=== PATIENT | female | born 1985 | race Caucasian/White ===

== ENCOUNTER 2016-11-11 10:46 | Emergency (ER) | payer OTHER ==
[2016-11-11 10:50] VITALS: BP 130/62; PULSE 78; TEMP 98.4; BMI 19.3
[2016-11-11] MEDS ORDERED: PENICILLIN G BENZATHINE 1,200,000 UNIT/2 ML PFS IM ONE (11:45)
--- NOTE | 2016-11-11 11:48 | PDOC ---
History of Present Illness - General Chief Complaint: Cold Symptoms Stated Complaint: SORE THROAT/EAR ACHE Time Seen by Provider: 11/11/16 11:11 History Source: Patient Exam Limitations: No Limitations - History of Present Illness Initial Comments: 11/11/16 11:45 c/o pain anmd swelling to throat x 2 days./ + fevers/ pain / px swallowing . Daughter ill with same last week on abx Timing/Duration: reports: just prior to arrival, getting worse Severity: reports: mild, moderate Past History - Travel Traveled outside of the country in the last 30 days: No Close contact w/someone who was outside of country & ill: No - Past Medical History Allergies/Adverse Reactions: Allergies Allergy/AdvReac Type Severity Reaction Status Date / Time No Known Allergies Allergy Verified 11/11/16 10:48 Home Medications: Ambulatory Orders NK [No Known Home Medication] 11/11/16 Other medical history: fibroids - Psycho/Social/Smoking Cessation Hx Anxiety: No Suicidal Ideation: No Smoking History: Never smoked Have you smoked in the past 12 months: No Information on smoking cessation initiated: No Hx Alcohol Use: No Drug/Substance Use Hx: No Substance Use Type: None Respiratory Specific PMHX - Complaint Specific PMHX Bronchitis: No Pneumonia: No Review of Systems - Review of Systems Able to Perform ROS?: Yes Is the patient limited Kenyan proficient: Yes Constitutional: Yes: Symptoms Reported, See HPI, Fever, Malaise HEENTM: Yes: Symptoms Reported, See HPI, Nose Congestion, Throat Pain, Throat Swelling, Difficulty Swallowing, Mouth Swelling Respiratory: Yes: Symptoms reported, See HPI, Cough. No: Wheezing Integumentary: Yes: Symptoms Reported All Other Systems: Reviewed and Negative *Physical Exam - Vital Signs Last Vital Signs Temp Pulse Resp BP Pulse Ox 98.4 F 78 18 130/62 100 11/11/16 10:48 11/11/16 10:48 11/11/16 10:48 11/11/16 10:48 11/11/16 10:48 - Physical Exam General Appearance: Yes: Nourished, Appropriately Dressed, Apparent Distress, Mild Distress HEENT: positive: AKSHAT, TMs Normal, Pharyngeal Erythema, Tonsillar Exudate, Tonsillar Erythema, Nasal Congestion, Rhinorrhea. 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 Will treat with one dose of 1.2 million units IM Bicillin LA. Observed for 30 minutes with no reaction *DC/Admit/Observation/Transfer Diagnosis at time of Disposition: Pharyngitis Qualifiers: Pharyngitis/tonsillitis etiology: unspecified etiology Qualified Code(s): J02.9 - Acute pharyngitis, unspecified - Discharge Dispostion Disposition: HOME Condition at time of disposition: Stable Admit: No - Referrals Referrals: STAFF,NOT ON [Primary Care Provider] - - Patient Instructions Printed Discharge Instructions: DI for Pharyngitis/Tonsillopharyngitis -- Adult Additional Instructions: Rest, drink lots of fluids: Teas, water, soups Eat cold things: Ice cream, ice pops, ice chips Saltwater gargles Steamy showers/seem to face break up mucus Avoid contact with others until fevers and pain resolved Lots of handwashing and good hygiene, this is contagious You have been treated with Bicillin LA 1.2 million units injection which is a one-time treatment for strep pharyngitis. You will not need to take any further antibiotics. Tylenol or Motrin for fever and pain Followup with private physician in one to 2 days as needed if not improving Return to emergency department for worsened symptoms, fevers, dehydration - Post Discharge Activity Work/School Note: Back to Work
[2016-11-11] MEDS ORDERED: PENICILLIN G BENZATHINE 2,400,000 UNIT/4 ML PFS ONE (11:49)
== END 2016-11-11 12:32 | disposition home or self-care (01) ==
LOC: JERFT 10:46
DX: J02.9 Acute pharyngitis, unspecified (principal)
CPT/HCPCS: 96372; 99281-25

== ENCOUNTER 2020-01-17 07:25 | Inpatient (IN) | payer OTHER ==
--- NOTE | 2020-01-17 09:27 | PD.OB.PROG ---
Past Medical History - Primary Care Physician Documenting Provider Type: Laborist - Admission Chief Complaint: abdominal pain, leakage of fluid History of Present Illness: 34yo at 37.5 weeks presents with c/o leakage of fluid and contraction pain. Pt noticed some leakage followed by a gush some time later. Has been having contraction pain. Mild vaginal bleeding. PNC at [facility] significant for previous myomectomy with 9cm myoma. 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 Cardio/Vascular: Denies/None Pulmonary: Denies/None Gastrointestinal: Denies/None Hepatobiliary: Denies/None Renal/: Denies/None ...: 2 ...Para: 1 ...Term: 0 ...: 1 ...Spon : 0 ...Induced : 0 ...Living Children: 1 Heme/Onc: Denies/None Infectious Disease: Denies/None Psych: Denies/None Musculoskeletal: Denies/None Rheumatology: Denies/None ENT: Denies/None Endocrine: Denies/None Dermatology: Denies/None - Past Surgical History Past Surgical History: Yes: None (abdominal myomectomy) - Smoking History Smoking history: Never smoked Have you smoked in the past 12 months: No - Alcohol/Substance Use Hx Alcohol Use: No History of Substance Use: reports: None - Social History History of Recent Travel: No Review of Systems - Review of Systems Constitutional: reports: No Symptoms Eyes: reports: No Symptoms HENT: reports: No Symptoms Neck: reports: No Symptoms Cardiovascular: reports: No Symptoms Respiratory: reports: No Symptoms Gastrointestinal: reports: No Symptoms Genitourinary: reports: Pain Breasts: reports: No Symptoms Reported Musculoskeletal: reports: No Symptoms Integumentary: reports: No Symptoms Neurological: reports: No Symptoms Endocrine: reports: No Symptoms Hematology/Lymphatic: reports: No Symptoms Psychiatric: reports: No Symptoms Physical Exam - Obstetrical Constitutional: Yes: Well Nourished Eyes: Yes: WNL Neck: Yes: WNL Cardiovascular: Yes: Regular Rate and Rhythm - Abdominal Exam/OB Fundal Height: 39 Number of Fetuses: Single Presentation: Vertex Contractions: Yes Intensity: Mod/Strong Monitor Mode: External Heart Rate (range): 145 Category: II Accelerations: Uniform Decelerations: Variable - Vaginal Exam/OB Vaginal Bleeding: Light Speculum Exam: Yes Dilatation (cm): closed Amniotic Membrane Status: Ruptured Nitrazine Test: Positive Amniotic Fluid: Yes: Blood Stained Station: -3 (cervix appears closed; pt did not tolerate exam) - Physical Exam Musculoskeletal: Yes: WNL Integumentary: Yes: WNL Assessment/Plan 34yo at 37+ weeks with SROM and contractions; previous myomectomy primary ob Dr. Lorenzo called and informed of findings pt to be admitted; plan for primary c/s for previous myomectomy Dr. Rueda
[2020-01-17 09:45] VITALS: BMI 63.3
[2020-01-17 10:13] LABS: BASO % 0.2 % (0-2.0); EOS % 1.3 % (0-4.5); HEMATOCRIT 34.2 % (32.4-45.2); HEMOGLOBIN 11.1 GM/dL (10.7-15.3); LYMPH % 16.9 % (8-40); MCH 25.2 pg (25.7-33.7); MCHC 32.4 g/dl (32.0-36.0); MEAN PLT VOLUME 8.8 fl (7.5-11.1); NEUT % 74.6 % (42.8-82.8); PLATELET COUNT 260 K/MM3 (134-434); RBC 4.38 M/mm3 (3.60-5.2); RDW 21.2 % (11.6-15.6); WHITE BLOOD COUNT 9.4 K/mm3 (4.0-10.0)
[2020-01-17 10:21] LABS: INR 0.92 (0.83-1.09); PROTHROMBIN TIME (PATIENT) 10.9 SEC (9.7-13.0)
[2020-01-17 10:24] LABS: ACTIVATED PTT 27.4 SECONDS (25.2-36.5)
[2020-01-17 10:28] LABS: BLOOD UREA NITROGEN 10.8 mg/dL (7-18); CALCIUM 9.3 mg/dL (8.5-10.1); CREATININE 0.5 mg/dL (0.55-1.3); POTASSIUM 4.3 mmol/L (3.5-5.1)
[2020-01-17] MEDS ORDERED: ONDANSETRON 4 MG/2 ML VIAL IVPUSH PRN (10:47)
[2020-01-17] MEDS ORDERED: morphine SULFATE/PF 0.5 MG/ML (2cc Syringe - QUVA) EP ONE (10:47)
[2020-01-17] MEDS ORDERED: ceFAZolin SODIUM 1 GM VIAL ONE (11:02)
[2020-01-17 11:09] LABS: ANISOCYTOSIS 1+; MACROCYTOSIS 0; PLATELET ESTIMATE NORMAL
--- NOTE | 2020-01-17 11:12 | HP ---
Past Medical History - Primary Care Physician PCP:: Tunde Lorenzo - Admission Chief Complaint: 34yo P1 admitted with at EGA 37w6d due to spontaneous labor, SROM, and spotting. History of Present Illness: Pt presenteed with spontaneous ctx's SROM and spotting. 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: Alzheimer's, CVA, Dementia, Migraine, Multiple Sclerosis, Peripheral Neuropathy, Parkinson's, Seizure, Syncope, TIA, Vertigo, Other Cardiovascular: No: AFIB, Aneurysm, Aortic Insufficiency, Aortic Stenosis, CAD, CHF, Deep Vein Thrombosis, HTN, Hyperlipdemia, [place], Mitral Insufficiency, Mitral Stenosis, Murmur, Pulmonary Hypertension, Other Pulmonary: No: Asthma, Bronchitis, Cancer, COPD, O2 Dependent, Pneumonia, Previously Intubated, Pulmonary Embolus, Pulmonary Fibrosis, Sleep Apnea, Other Gastrointestinal: No: Ascites, Cancer, Constipation, Crohn's Disease, Diverticulitis, Diverticulosis, Esophageal Varices, Gastritis, GERD, GI Bleed, Hemorrhoids, Hiatal Hernia, Inflamatory Bowel Disease, Irritable Bowel Disease, Pancreatitis, Peptic Ulcer Disease, Ulcerative Colitis, Other Hepatobiliary: No: Cirrhosis, Cholelithiasis, Cholecystitis, Choledocholithiasis, Hepatitis A, Hepatitis B, Hepatitis C, Other Renal/: No: Renal Failure, Renal Inusuff, BPH, Cancer, Hematuria, Hemodialysis, Neurogenic Bladder, Renal Calculi, UTI, Other Reproductive: No: Ectopic , Endometriosis, Fibroids, PID, Polycystic Ovary Syndrome, Postmenopausal, Other ...: 2 ...Para: 1 ...Term: 0 ...: 1 ...Spon : 0 ...Induced : 0 ...Living Children: 1 ...LMP: 05/01/19 ... Weeks Gestation by Dates: 37.2 ...EDC by Dates: 02/05/20 ...EDC by Sono: 01/31/20 Heme/Onc: Yes: Anemia Infectious Disease: No: AIDS, C-Diff, Herpes Zoster, HIV, MRSA, STD's, Tuberculosis, VREF, Other Psych: No: Addictions, Anxiety, Bipolar, Depression, Panic, Psychosis, Schizophrenia, Other Musculoskeletal: No: Bursitis, Chronic low back pain, Hemiparesis, Hemiplegia, Osteoarthritis, Paraplegia, Other Rheumatology: No: Fibromyalgia, Gout, Lupus, Rheumatoid Arthritis, Sarcoidosis, Vasculitis, Other ENT: No: Allergic Rhinitis, Sinusitis, Other Endocrine: No: [place]'s Disease, [place]'s Disease, Diabetes Insipidus, Diabetes Mellitus, Hyperparathyroidism, Hyperthyroidism, Hypothyroidism, Osteopenia, SIADH, Other Dermatology: No: Basal Cell, Cellulitis, Eczema, Melanoma, Psoriasis, Squamous Cell, Other - Past Surgical History Hx Myomectomy: Yes (Laparoscopic) Hx Transabdominal Cerclage: No - Smoking History Smoking history: Never smoked Have you smoked in the past 12 months: No - Alcohol/Substance Use Hx Alcohol Use: No History of Substance Use: reports: None - Social History Usual Living Arrangement: Yes: With Spouse, With Child Do you think of yourself as: Straight/Heterosexual ADL: Independent 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 History of Recent Travel: No Home Medications - Allergies Allergies/Adverse Reactions: Allergies Allergy/AdvReac Type Severity Reaction Status Date / Time oxycodone [From Percocet] Allergy Verified 01/17/20 09:46 - Home Medications Home Medications: Ambulatory Orders Pnv No.95/Ferrous Fum/Folic AC [ Formula] 1 each PO DAILY 01/07/20 Iron 1 infus.bot IV WEEKLY 01/08/20 Tablet 1 tablet PO DAILY 01/17/20 Family Medical History Family Hx Cardiac Disorders: Father Review of Systems - Review of Systems Constitutional: reports: Other (Pain with contractions and/or fibroids.) Eyes: reports: No Symptoms HENT: reports: No Symptoms Neck: reports: No Symptoms Cardiovascular: reports: No Symptoms Respiratory: reports: No Symptoms Gastrointestinal: reports: No Symptoms Genitourinary: reports: No Symptoms Breasts: reports: No Symptoms Reported Musculoskeletal: reports: No Symptoms Integumentary: reports: No Symptoms Neurological: reports: No Symptoms Endocrine: reports: No Symptoms Hematology/Lymphatic: reports: No Symptoms Psychiatric: reports: No Symptoms Pain Intensity: 7 Physical Exam - Maternity Vital Signs: Vital Signs Temperature 98.2 F 01/17/20 09:36 Pulse Rate 82 01/17/20 10:15 Respiratory Rate 18 01/17/20 10:15 Blood Pressure 121/72 01/17/20 10:15 O2 Sat by Pulse Oximetry (%) Constitutional: Yes: Well Nourished, No Distress, Calm Eyes: Yes: WNL, Conjunctiva Clear, EOM Intact HENT: Yes: WNL, Atraumatic, Normocephalic Neck: Yes: WNL, Supple, Trachea Midline Cardiovascular: Yes: WNL, Regular Rate and Rhythm Lungs: Clear to auscultation, Normal air movement Breast(s): Yes: WNL - Abdominal Exam/OB Fundal Height: 39 Number of Fetuses: Single Presentation: Vertex Contractions: Yes Intensity: Moderate Monitor Mode: External Heart Rate (range): 140 Heart Rate Location: Midline Accelerations: Non-Uniform Decelerations: None - Vaginal Exam/OB Vaginal Bleeding: Yes, Light, Old Blood Speculum Exam: Yes Dilatation (cm): 1 Effacement (%): 50 Amniotic Membrane Status: Leaking Nitrazine Test: Positive Amniotic Fluid: Yes: Clear Presentation: Vertex/Position Station: -4 - Physical Exam Musculoskeletal: Yes: WNL Extremities: Yes: WNL Edema: No Integumentary: Yes: WNL Deep Tendon Reflex Grade: Normal +2 ...Motor Strength: WNL Psychiatric: Yes: WNL, Alert, Oriented - Labs Lab Results: CBC, BMP 01/17/20 09:36 01/17/20 09:36 Hemorrhage Risk Assessment - Risk Factors Medium Risk Factors: Yes: Prior , uterine surgery,or multiple laparotomies, Large myomas High Risk Factors: Yes: None Risk Score: 2 Risk Level: High Risk Imaging - Results Ultrasound: Report Reviewed Assessment/Plan 34yo P1 admitted with at EGA 37w6d due to spontaneous labor, SROM, and spotting. The decision was made to proceed with delivery by C/S. We discussed the risks and benefits of C/S at length, including but not limited to scarring, pain, bleeding, infection, injury to underlying organs and structures, need for additional surgery to repair/treat any problems or complications, complications/injuries, etc. The pt verbalized her understanding and requested to proceed with surgery. The pt is aware that all surgeries have risks and no guarantees can be provided
[2020-01-17] MEDS ORDERED: ELECTROLYTE-148 SOLN 1,000 ML IV SCH (11:15)
[2020-01-17] MEDS ORDERED: PHENYLEPHRINE HCL 10 MG/1 ML SINGLE DOSE VIAL ONE (11:25)
[2020-01-17] MEDS ORDERED: OXYTOCIN 10 UNITS/ML VIAL ONE ×2 (11:38→11:46)
[2020-01-17] MEDS ORDERED: MIDAZOLAM HCL 2 MG/2 ML SINGLE DOSE VIAL ONE (11:40)
[2020-01-17] MEDS: OXYTOCIN 20 UNITS in 0.9% NS 20 UNIT/1,000 ML INFUS.BAG IV SCH (11:40)
[2020-01-17] MEDS ORDERED: LIDOCAINE HCL/PF 2% SDV 5ML VIAL ONE (11:41)
[2020-01-17 12:24] LABS: VENOUS BASE EXCESS -3.2 mmol/L (-2-2); VENOUS O2 SATURATION 58.5 % (70-80); VENOUS PCO2 44.9 mmHg (38-52); VENOUS PH 7.326 (7.310-7.410)
[2020-01-17 12:28] LABS: ARTERIAL BLOOD GAS BASE EXCESS -3.8 mmol/L (-2-2)
[2020-01-17 12:32] LABS: ARTERIAL BLOOD GAS PO2 < 15.0 mmHg (80-100)
[2020-01-17] MEDS ORDERED: BENZOCAINE 28 GM HEMORRHOIDAL OINTMENT TP PRN (13:02)
[2020-01-17] MEDS ORDERED: METHYLERGONOVINE MALEATE 0.2 MG/1 ML AMP IM PRN (13:02)
[2020-01-17] MEDS ORDERED: WITCH HAZEL 50% (TUCKS) 40 PAD/JAR PAD TP PRN (13:02)
[2020-01-17] MEDS ORDERED: IBUPROFEN 800 MG/8 ML IJ IVPB PRN (13:02)
[2020-01-17] MEDS ORDERED: BENZOCAINE 20% 57 GM BOTTLE TP PRN (13:02)
--- NOTE | 2020-01-17 13:41 | OP ---
Operative Note - Note: Operative Date: 01/17/20 Pre-Operative Diagnosis: at EGA 37w6d. Prior uterine surgery/scar. large uterine fibroids. AMA. Spontaneous labor Operation: Primary LT C/S Findings: Live baby boy in vts presentation, no meconium in amniotic fluid, Nuchal cord x 2. 9-9. Wt 6 lb 10 oz. Post-Operative Diagnosis: Same as Pre-op Surgeon: Tunde Lorenzo Biomedical Manager: Marilee Rueda Anesthesiologist/DETECTIVE HOMICIDE SQUAD: Garth Leija Anesthesia: Spinal Specimens Removed: Placenta Estimated Blood Loss (mls): 700 Drains & Tubes with Location: [place] catheter Drains, Volume Out (mls): 700 Blood Volume Replaced (mls): 0 Fluid Volume Replaced (mls): 1,100 Operative Report Dictated: Yes
[2020-01-17] MEDS ORDERED: OXYTOCIN 20 UNITS in 0.9% NS 20 UNIT/1,000 ML INFUS.BAG IV ONE (13:58)
[2020-01-17 14:28] LABS: BASO % 0.2 % (0-2.0); EOS % 0.7 % (0-4.5); HEMATOCRIT 35.8 % (32.4-45.2); HEMOGLOBIN 11.4 GM/dL (10.7-15.3); LYMPH % 13.2 % (8-40); MCH 24.5 pg (25.7-33.7); MCHC 31.8 g/dl (32.0-36.0); MEAN CELL VOLUME 77.2 fl (80-96); MEAN PLT VOLUME 8.5 fl (7.5-11.1); MONO % 3.9 % (3.8-10.2); PLATELET COUNT 264 K/MM3 (134-434); RBC 4.63 M/mm3 (3.60-5.2); RDW 21.5 % (11.6-15.6); WHITE BLOOD COUNT 9.5 K/mm3 (4.0-10.0)
--- NOTE | 2020-01-17 20:45 | PN ---
Progress Note (short form) - Note Progress Note: Assited Dr. Lorenzo in primary c/s for previous myomectomy. Dr. Rueda
--- NOTE | 2020-01-18 07:30 | CON.CARD ---
Consult Consult Specialty:: Cardiology Reason for Consultation:: EKG changes - History of Present Illness History of Present Illness: 34yo P1 admitted with at EGA 37w6d due to spontaneous labor, SROM, and spotting. History of Present Illness: Pt presenteed with spontaneous ctx's SROM and spotting. 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: Alzheimer's, CVA, Dementia, Migraine, Multiple Sclerosis, Peripheral Neuropathy, Parkinson's, Seizure, Syncope, TIA, Vertigo, Other Cardio/Vascular: No: AFIB, Aneurysm, Aortic Insufficiency, Aortic Stenosis, CAD, CHF, Deep Vein Thrombosis, HTN, Hyperlipdemia, [place], Mitral Insufficiency, Mitral Stenosis, Murmur, Pulmonary Hypertension, Other Pulmonary: No: Asthma, Bronchitis, Cancer, COPD, O2 Dependent, Pneumonia, Previously Intubated, Pulmonary Embolus, Pulmonary Fibrosis, Sleep Apnea, Other Gastrointestinal: No: Ascites, Cancer, Constipation, Crohn's Disease, Diverticulitis, Diverticulosis, Esophageal Varices, Gastritis, GERD, GI Bleed, Hemorrhoids, Hiatal Hernia, Inflamatory Bowel Disease, Irritable Bowel Disease, Pancreatitis, Peptic Ulcer Disease, Ulcerative Colitis, Other Hepatobiliary: No: Cirrhosis, Cholelithiasis, Cholecystitis, Choledocholithiasis, Hepatitis A, Hepatitis B, Hepatitis C, Other Renal/: No: Renal Failure, Renal Inusuff, BPH, Cancer, Hematuria, Hemodialysis, Neurogenic Bladder, Renal Calculi, UTI, Other Infectious Disease: No: AIDS, C-Diff, Herpes Zoster, HIV, MRSA, STD's, Tuberculosis, VREF, Other Psych: No: Addictions, Anxiety, Bipolar, Depression, Panic, Psychosis, Schizophrenia, Other Musculoskeletal: No: Bursitis, Chronic low back pain, Hemiparesis, Hemiplegia, Osteoarthritis, Paraplegia, Other Rheumatology: No: Fibromyalgia, Gout, Lupus, Rheumatoid Arthritis, Sarcoidosis, Vasculitis, Other ENT: No: Allergic Rhinitis, Sinusitis, Other Endocrine: No: Maurizio's Disease, [place]'s Disease, Diabetes Insipidus, Diabetes Mellitus, Hyperparathyroidism, Hyperthyroidism, Hypothyroidism, Osteopenia, SIADH, Other Dermatology: No: Basal Cell, Cellulitis, Eczema, Melanoma, Psoriasis, Squamous Cell, Other - Past Surgical History Past Surgical History: Yes: None (abdominal myomectomy) - Alcohol/Substance Use Hx Alcohol Use: No History of Substance Use: reports: None - Smoking History Smoking history: Never smoked Have you smoked in the past 12 months: No - Social History ADL: Independent 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 History of Recent Travel: No Home Medications - Allergies Allergies/Adverse Reactions: Allergies Allergy/AdvReac Type Severity Reaction Status Date / Time oxycodone [From Percocet] Allergy Verified 01/17/20 09:46 - Home Medications Home Medications: Ambulatory Orders Pnv No.95/Ferrous Fum/Folic AC [ Formula] 1 each PO DAILY 01/07/20 Iron 1 infus.bot IV WEEKLY 01/08/20 Tablet 1 tablet PO DAILY 01/17/20 Review of Systems - Review of Systems Constitutional: reports: No Symptoms Eyes: reports: No Symptoms HENT: reports: No Symptoms Neck: reports: No Symptoms Cardiovascular: reports: No Symptoms Gastrointestinal: reports: No Symptoms Genitourinary: reports: No Symptoms Breasts: reports: No Symptoms Reported Musculoskeletal: reports: No Symptoms Integumentary: reports: No Symptoms Neurological: reports: No Symptoms Endocrine: reports: No Symptoms Hematology/Lymphatic: reports: No Symptoms Psychiatric: reports: No Symptoms Vital Signs: Vital Signs Temperature 98.5 F 01/18/20 06:00 Pulse Rate 92 H 01/18/20 06:00 Respiratory Rate 20 01/18/20 06:00 Blood Pressure 126/72 01/18/20 06:00 O2 Sat by Pulse Oximetry (%) Constitutional: Yes: Well Nourished, No Distress, Calm Eyes: Yes: WNL, Conjunctiva Clear, EOM Intact HENT: Yes: WNL, Atraumatic, Normocephalic Neck: Yes: WNL, Supple, Trachea Midline Respiratory: Yes: WNL, Regular, CTA Bilaterally Gastrointestinal: Yes: WNL, Normal Bowel Sounds Renal/: Yes: WNL Cardiovascular: Yes: WNL, Regular Rate and Rhythm Musculoskeletal: Yes: WNL Extremities: Yes: WNL Integumentary: Yes: WNL Neurological: Yes: WNL, Alert, Oriented ...Motor Strength: WNL Psychiatric: Yes: WNL, Alert, Oriented - Other Data Labs, Other Data: CBC, BMP 01/17/20 13:50 01/17/20 09:36 INR, PTT INR 0.92 (0.83-1.09) 01/17/20 09:36 Troponin, BNP 01/17/20 13:50 Troponin I < 0.02 Troponin, BNP 01/17/20 13:50 Troponin I < 0.02 Imaging - Results EKG: Image Reviewed (sr wnl) Problem List - Problems (1) Fibroid uterus Code(s): D25.9 - LEIOMYOMA OF UTERUS, UNSPECIFIED Qualifiers: Uterine leiomyoma location: intramural Qualified Code(s): D25.1 - Intr amural leiomyoma of uterus (2) Pharyngitis Code(s): J02.9 - ACUTE PHARYNGITIS, UNSPECIFIED Qualifiers: Pharyngitis/tonsillitis etiology: unspecified etiology Qualified Code(s): J02.9 - Acute pharyngitis, unspecified (3) with 36 completed weeks gestation Code(s): Z3A.36 - 36 WEEKS GESTATION OF (4) Uterine scar from previous surgery affecting Code(s): O34.29 - MATERNAL CARE DUE TO UTERINE SCAR FROM [facility] PREVIOUS SURGERY Assessment/Plan 34 y.o POD #1 evaluated for abnormal EKG pre-op as per anesthesia note EKG preop showed inverted T- waves. This EKG is unavailable and not in the chart. Two 12 leads EKG in the [place] system are normal Plan; Will obtain ECHO to further evaluate. Will try to obtain/locate abnormal ekg Will f/u
[2020-01-18] MEDS: OXYTOCIN 20 UNITS in 0.9% NS 20 UNIT/1,000 ML INFUS.BAG IV SCH (07:45)
[2020-01-18 08:37] LABS: BASO % 0.1 % (0-2.0); EOS % 0.7 % (0-4.5); HEMATOCRIT 35.8 % (32.4-45.2); HEMOGLOBIN 11.2 GM/dL (10.7-15.3); LYMPH % 9.4 % (8-40); MCH 24.4 pg (25.7-33.7); MCHC 31.4 g/dl (32.0-36.0); MEAN CELL VOLUME 77.6 fl (80-96); MEAN PLT VOLUME 8.5 fl (7.5-11.1); MONO % 4.7 % (3.8-10.2); NEUT % 85.1 % (42.8-82.8); PLATELET COUNT 250 K/MM3 (134-434); RBC 4.61 M/mm3 (3.60-5.2); RDW 22.1 % (11.6-15.6); WHITE BLOOD COUNT 13.6 K/mm3 (4.0-10.0)
[2020-01-18] MEDS: ENOXAPARIN NA (PORCINE) 40 MG/0.4 ML DISP.SYRIN SQ SCH (09:36)
[2020-01-18] MEDS: PRENATAL VITAMINS W/ FOLIC ACID TABLET (FP) PO SCH (09:44)
--- NOTE | 2020-01-18 09:53 | PN ---
Post Progress Note - Subjective Subjective: Patient without acute complaints. Reports tolerating oral intake without nausea or vomiting. Ambulating without dizziness. Denies fevers or chills. Pain well controlled with oral pain medication. Pumping/breast feeding without issue. Passing flatus, no BM. Post Day: 1 Type of Delivery: Primary C/S Vital Signs: Vital Signs Temperature 98.5 F 01/18/20 06:00 Pulse Rate 92 H 01/18/20 06:00 Respiratory Rate 20 01/18/20 06:00 Blood Pressure 126/72 01/18/20 06:00 O2 Sat by Pulse Oximetry (%) Breast Exam: Yes: Soft Uterus: Yes: Fundus Firm, Fundus below umbilicus Incision: Yes: Dressing dry and intact Abdomen/GI: Yes: Abdomen soft, Passing flatus, Tolerating PO Lochia: Yes: Rubra Lochia, amount: Small Extremities: Yes: Calves non-tender Perineum: Yes: Intact Activity: Ambulating - Labs Labs: CBC WBC 13.6 K/mm3 (4.0-10.0) H 01/18/20 07:56 RBC 4.61 M/mm3 (3.60-5.2) 01/18/20 07:56 Hgb 11.2 GM/dL (10.7-15.3) 01/18/20 07:56 Hct 35.8 % (32.4-45.2) 01/18/20 07:56 MCV 77.6 fl (80-96) L 01/18/20 07:56 MCH 24.4 pg (25.7-33.7) L 01/18/20 07:56 MCHC 31.4 g/dl (32.0-36.0) L 01/18/20 07:56 RDW 22.1 % (11.6-15.6) H 01/18/20 07:56 Plt Count 250 K/MM3 (134-434) 01/18/20 07:56 MPV 8.5 fl (7.5-11.1) 01/18/20 07:56 Absolute Neuts (auto) 11.5 K/mm3 (1.5-8.0) H 01/18/20 07:56 Neutrophils % 85.1 % (42.8-82.8) H 01/18/20 07:56 Lymphocytes % 9.4 % (8-40) D 01/18/20 07:56 Monocytes % 4.7 % (3.8-10.2) 01/18/20 07:56 Eosinophils % 0.7 % (0-4.5) 01/18/20 07:56 Basophils % 0.1 % (0-2.0) 01/18/20 07:56 Nucleated RBC % 0 % (0-0) 01/18/20 07:56 Hypochromia 0 01/17/20 09:36 Platelet Estimate Normal 01/17/20 09:36 Polychromasia 0 01/17/20 09:36 Poikilocytosis 0 01/17/20 09:36 Basophilic Stippling 1+ 01/17/20 09:36 Anisocytosis 1+ 01/17/20 09:36 Microcytosis 1+ 01/17/20 09:36 Macrocytosis 0 01/17/20 09:36 Assessment/Plan 34yo P2 s/p repeat LT C/S. The pt is doing well, afebrile. The pt is asymptomatic for s/sxs of anemia. care instructions reviewed. Postoperative care and instructions reviewed. Continue routine postop care. Ambulation encouraged.
--- NOTE | 2020-01-18 10:16 | EKG ---
Test Reason : Blood Pressure : / mmHG Vent. Rate : 058 BPM Atrial Rate : 058 BPM P-R Int : 160 ms QRS Dur : 088 ms QT Int : 458 ms P-R-T Axes : 034 027 016 degrees QTc Int : 449 ms SINUS BRADYCARDIA OTHERWISE NORMAL ECG NO PREVIOUS ECGS AVAILABLE Confirmed by Jeovany De Luna ([id number]) on 01/18/2020 10:16:10 AM Referred By: Dasia CHAPMAN Confirmed By:Jeovany De Luna
--- NOTE | 2020-01-18 10:44 | PN ---
Progress Note (short form) - Note Progress Note: Anesthesia POD#1 S/P under spinal and Duramorph VSS, some nausea yesterday,better now. pain is bearable. C/O itch better after Benedryl. legs fully recovered. Skylar Villarreal MD.
--- NOTE | 2020-01-18 11:40 | EKG ---
Test Reason : Blood Pressure : / mmHG Vent. Rate : 090 BPM Atrial Rate : 090 BPM P-R Int : 148 ms QRS Dur : 084 ms QT Int : 370 ms P-R-T Axes : 030 024 013 degrees QTc Int : 452 ms POOR DATA QUALITY, INTERPRETATION MAY BE ADVERSELY AFFECTED NORMAL SINUS RHYTHM NORMAL ECG WHEN COMPARED WITH ECG OF 18-JAN-2020 10:01, HR has increased Confirmed by Jeovany De Luna ([id number]) on 01/18/2020 11:40:15 AM Referred By: Confirmed By:Jeovany De Luna
[2020-01-18] MEDS ORDERED: BISACODYL 10 MG SUPP.RECT RC PRN (13:06)
[2020-01-18] MEDS: IBUPROFEN 600 MG TABLET (FP) PO PRN ×2 (13:46→20:28)
[2020-01-18] MEDS: ACETAMINOPHEN 325 MG TABLET (FP) PO PRN ×2 (13:48→20:28)
[2020-01-18] MEDS: SIMETHICONE 80 MG TAB.CHEW (FP) PO PRN ×2 (13:49→20:29)
--- NOTE | 2020-01-18 13:49 | ECHO ---
Name: MAGDY ANGELES Exam:Adult Echocardiogram Study Date: 01/18/2020 01:08 PM Age: 34 yrs Reason For Study: Evaluate EF Height: 66 in Weight: 170 lb BSA: 1.9 m2 MMode/2D Measurements & Calculations IVSd: 0.96 cm Ao root diam: 2.9 cm LVIDd: 4.4 cm LA dimension: 3.6 cm LVIDs: 3.0 cm ACS: 1.9 cm LVPWd: 0.85 cm EDV(Teich): 89.2 ml LVOT diam: 2.0 cm ESV(Teich): 34.5 ml LAV (MOD-bp): 44.0 ml TAPSE: 3.0 cm RV S Monico: 16.4 cm/sec Doppler Measurements & Calculations MV E max monico: 102.0 cm/sec Ao V2 max: 160.2 cm/sec MV A max monico: 88.8 cm/sec Ao max P.3 mmHg MV E/A: 1.1 Ao V2 mean: 106.1 cm/sec MV dec time: 0.15 sec Ao mean P.2 mmHg Ao V2 VTI: 28.0 cm RANI(I,D): 2.3 cm2 RANI(V,D): 2.2 cm2 LV V1 max P.9 mmHg SV(LVOT): 64.3 ml LV V1 mean P.5 mmHg LV V1 max: 110.8 cm/sec LV V1 mean: 73.1 cm/sec LV V1 VTI: 20.1 cm TR max monico: 228.0 cm/sec PA V2 max: 119.4 cm/sec TR max P.0 mmHg PA max P.7 mmHg PA acc slope: 772.9 cm/sec2 PA acc time: 0.13 sec Med Peak E' Monico: 10.3 cm/sec PA pr(Accel): 20.4 mmHg Med E/e': 9.9 Lat Peak E' Monico: 14.4 cm/sec Lat E/e': 7.1 Procedure Study Quality: Fair. Left Ventricle The left ventricular size, thickness and function are normal. The left ventricular ejection fraction is normal. Ejection Fraction = 60-65%. Left Ventricular Filling pattern is normal for age. Right Ventricle The right ventricle is normal in size and function. Atria Normal left and right atrial size and function. Mitral Valve The mitral valve leaflets appear normal. There is no evidence of stenosis, fluttering, or prolapse. T here is no mitral regurgitation noted. Tricuspid Valve The tricuspid valve is normal. No tricuspid regurgitation. Aortic Valve The aortic valve is normal in structure and function. Pulmonic Valve The pulmonic valve leaflets are thin and pliable; valve motion is normal. There is no pulmonic valvul ar regurgitation. Great Vessels The aortic root is normal size. Pericardium/Pleura There is no pericardial effusion. Apical fat pad. Interpretation Summary This was essentially a normal study. Jeovany De Luna 01/18/2020 01:49 PM
[2020-01-18] MEDS: SENNOSIDES/DOCUSATE COMBO (SENNA PLUS) TABLET (UD) PO PRN (20:29)
[2020-01-19] MEDS: IBUPROFEN 600 MG TABLET (FP) PO PRN ×3 (02:46→20:05)
[2020-01-19] MEDS: ACETAMINOPHEN 325 MG TABLET (FP) PO PRN ×3 (02:46→20:04)
[2020-01-19] MEDS: SIMETHICONE 80 MG TAB.CHEW (FP) PO PRN ×3 (02:46→20:06)
[2020-01-19] MEDS: ENOXAPARIN NA (PORCINE) 40 MG/0.4 ML DISP.SYRIN SQ SCH (09:31)
[2020-01-19] MEDS: PRENATAL VITAMINS W/ FOLIC ACID TABLET (FP) PO SCH (09:32)
--- NOTE | 2020-01-19 12:11 | PN ---
Post Progress Note - Subjective Subjective: Patient without acute complaints. Reports tolerating oral intake without nausea or vomiting. Ambulating without dizziness. Denies fevers or chills. Pain well controlled with oral pain medication. without difficulty. Passing flatus. Post Day: 2 Type of Delivery: Primary C/S Vital Signs: Vital Signs Temperature 98.5 F 01/18/20 21:00 Pulse Rate 78 01/19/20 06:00 Respiratory Rate 18 01/19/20 06:00 Blood Pressure 120/64 01/19/20 06:00 O2 Sat by Pulse Oximetry (%) Breast Exam: Yes: Soft Uterus: Yes: Fundus Firm Incision: Yes: Sutures intact Abdomen/GI: Yes: Abdomen soft Lochia: Yes: Rubra Lochia, amount: Small Extremities: Yes: Calves non-tender, Edema Perineum: Yes: Intact Activity: Ambulating - Labs Labs: CBC WBC 13.6 K/mm3 (4.0-10.0) H 01/18/20 07:56 RBC 4.61 M/mm3 (3.60-5.2) 01/18/20 07:56 Hgb 11.2 GM/dL (10.7-15.3) 01/18/20 07:56 Hct 35.8 % (32.4-45.2) 01/18/20 07:56 MCV 77.6 fl (80-96) L 01/18/20 07:56 MCH 24.4 pg (25.7-33.7) L 01/18/20 07:56 MCHC 31.4 g/dl (32.0-36.0) L 01/18/20 07:56 RDW 22.1 % (11.6-15.6) H 01/18/20 07:56 Plt Count 250 K/MM3 (134-434) 01/18/20 07:56 MPV 8.5 fl (7.5-11.1) 01/18/20 07:56 Absolute Neuts (auto) 11.5 K/mm3 (1.5-8.0) H 01/18/20 07:56 Neutrophils % 85.1 % (42.8-82.8) H 01/18/20 07:56 Lymphocytes % 9.4 % (8-40) D 01/18/20 07:56 Monocytes % 4.7 % (3.8-10.2) 01/18/20 07:56 Eosinophils % 0.7 % (0-4.5) 01/18/20 07:56 Basophils % 0.1 % (0-2.0) 01/18/20 07:56 Nucleated RBC % 0 % (0-0) 01/18/20 07:56 Hypochromia 0 01/17/20 09:36 Platelet Estimate Normal 01/17/20 09:36 Polychromasia 0 01/17/20 09:36 Poikilocytosis 0 01/17/20 09:36 Basophilic Stippling 1+ 01/17/20 09:36 Anisocytosis 1+ 01/17/20 09:36 Microcytosis 1+ 01/17/20 09:36 Macrocytosis 0 01/17/20 09:36 Assessment/Plan 34yo P2 s/p Primary c/section due to prior Myomectomy POD # 2 VSS, Afebrile Rh pos no need for RhoGam Baby boy circumcised Encourage ambulation Plan to D/C in am
--- NOTE | 2020-01-19 13:52 | PN ---
Progress Note, Physician Chief Complaint: Pt A&Ox3; c/o recurrent pain at abdominal surgical site. History of Present Illness: 34yo woman (nitish Garibay), P1, admitted with at EGA 37w6d due to spontaneous labor, SROM, and spotting Pt presented with spontaneous ctx's SROM and spotting. complicated by: late PNC transfer at 28wk AMA Large uterine firboid(s) present Prior h/o Laparoscopic myomectomy Prior h/o PPROM and delivery () at 35wks Cardiac consult called after T wave changes reportedly noted on pre-op EKG. Pt denies hx heart disease. Her father in his 50s of a ?"clot from the abdomen down to the toes". - Current Medication List Current Medications: Active Medications Acetaminophen (Tylenol -) 650 mg PO Q4H PRN PRN Reason: FEVER Last Admin: 01/19/20 02:46 Dose: 650 mg Documented by: Benzocaine (Americaine 20% Spiro -) 1 spray TP PRN PRN PRN Reason: Pain - Topical Benzocaine (Americaine Ointment -) 1 applic TP PRN PRN PRN Reason: Pain - Topical Bisacodyl (Dulcolax Suppository -) 10 mg RC PRN PRN PRN Reason: CONSTIPATION Diphenhydramine HCl (Benadryl Injection -) 25 mg IVPUSH Q4H PRN PRN Reason: Pruritis Last Admin: 01/17/20 22:21 Dose: 25 mg Documented by: Enoxaparin Sodium (Lovenox -) 40 mg SQ DAILY [facility] Last Admin: 01/19/20 09:31 Dose: 40 mg Documented by: Parenteral Electrolytes (Plasma-Lyte 148 -) 1,000 mls @ 125 mls/hr IV ASDIR [facility] Last Admin: 01/17/20 07:15 Dose: 125 mls/hr Documented by: Ibuprofen (Motrin -) 600 mg PO Q4H PRN PRN Reason: PAIN LEVEL 1 - 3 Last Admin: 01/19/20 02:46 Dose: 600 mg Documented by: Ibuprofen (Caldolor Injection -) 800 mg IVPB Q8H PRN PRN Reason: PAIN LEVEL 1-5 Last Admin: 01/18/20 06:06 Dose: 800 mg Documented by: Methylergonovine Maleate (Methergine Injection -) 0.2 mg IM Q4H PRN PRN Reason: Excessive Bleeding (L&D) Ondansetron HCl (Zofran Injection) 4 mg IVPUSH Q4H PRN PRN Reason: NAUSEA Multivit/Folic Acid/Iron ( Vitamins (Sjr) -) 1 tab PO DAILY [facility] Last Admin: 01/19/20 09:32 Dose: 1 tab Documented by: Senna/Docusate Sodium (Pericolace -) 2 tablet PO HS PRN PRN Reason: CONSTIPATION Last Admin: 01/18/20 20:29 Dose: 2 tablet Documented by: Simethicone (Mylicon -) 80 mg PO Q4H PRN PRN Reason: GAS Last Admin: 01/19/20 02:46 Dose: 80 mg Documented by: Benjamin Schrader/Glycerin (Tucks Pads -) 1 pad TP PRN PRN PRN Reason: Pain - Topical - Objective Vital Signs: Vital Signs Temperature 98.6 F 01/19/20 07:20 Pulse Rate 86 01/19/20 07:20 Respiratory Rate 18 01/19/20 07:20 Blood Pressure 114/74 01/19/20 07:20 O2 Sat by Pulse Oximetry (%) Constitutional: Yes: Calm Eyes: Yes: WNL HENT: Yes: WNL Neck: Yes: WNL Cardiovascular: Yes: WNL Respiratory: Yes: WNL Gastrointestinal: Yes: Soft, Tenderness ...Rectal Exam: Yes: Deferred Genitourinary: No: Anuria Musculoskeletal: Yes: WNL Extremities: Yes: WNL Edema: No Peripheral Pulses WNL: Yes Integumentary: Yes: WNL Wound/Incision: Yes: Dressing Dry and Intact Neurological: Yes: WNL ...Motor Strength: WNL Psychiatric: Yes: WNL Labs: CBC, BMP 01/18/20 07:56 01/17/20 09:36 INR, PTT INR 0.92 (0.83-1.09) 01/17/20 09:36 - ....Imaging EKG: Image Reviewed Assessment/Plan 34 y.o POD #1 evaluated for abnormal EKG pre-op as per anesthesia note EKG preop showed inverted T- waves. This EKG is unavailable and not in the chart. Two 12 leads EKG in the [place] system are normal Plan: Vital signs stable; pt has no chest pain, palpitations, dizziness, or syncope. ECHO: essentially normal study, including normal LVEF. Will try to obtain/locate abnormal ekg (01/17/2020 EKG notes sinus bradycardia; isolated T wave inversions in III, V1). Repeat EKG today; f/u TSH and lipid profile.
--- NOTE | 2020-01-19 14:51 | EKG ---
Test Reason : Blood Pressure : / mmHG Vent. Rate : 076 BPM Atrial Rate : 076 BPM P-R Int : 150 ms QRS Dur : 088 ms QT Int : 380 ms P-R-T Axes : 030 027 014 degrees QTc Int : 427 ms NORMAL SINUS RHYTHM NORMAL ECG WHEN COMPARED WITH ECG OF 18-JAN-2020 10:04, NO SIGNIFICANT CHANGE WAS FOUND Confirmed by MD Ozuna Daniel ([id number]) on 01/19/2020 2:51:05 PM Referred By: DELANO RICCI Confirmed By:Robetr Ozuna MD
[2020-01-19] MEDS: SENNOSIDES/DOCUSATE COMBO (SENNA PLUS) TABLET (UD) PO PRN (20:04)
[2020-01-20] MEDS: ACETAMINOPHEN 325 MG TABLET (FP) PO PRN ×2 (05:56→11:03)
[2020-01-20] MEDS: IBUPROFEN 600 MG TABLET (FP) PO PRN ×2 (05:56→11:05)
[2020-01-20] MEDS: SIMETHICONE 80 MG TAB.CHEW (FP) PO PRN ×2 (05:57→11:04)
--- NOTE | 2020-01-20 08:35 | DS ---
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 Vital Signs: Vital Signs Temperature 98.7 F 01/19/20 22:00 Pulse Rate 82 01/19/20 22:00 Respiratory Rate 18 01/19/20 22:00 Blood Pressure 112/67 01/19/20 22:00 O2 Sat by Pulse Oximetry (%) Constitutional: Yes: Well Nourished, No Distress, Calm Eyes: Yes: WNL, Conjunctiva Clear, EOM Intact HENT: Yes: WNL, Atraumatic, Normocephalic Neck: Yes: WNL, Supple, Trachea Midline Cardiovascular: Yes: WNL, Regular Rate and Rhythm Respiratory: Yes: WNL, Regular, CTA Bilaterally Gastrointestinal: Yes: WNL, Normal Bowel Sounds, Soft ...Rectal Exam: Yes: Deferred Renal/: Yes: WNL ....Post : Yes: Uterus firm, Uterus non-tender, Slight lochia rubra Breast(s): Yes: WNL Musculoskeletal: Yes: WNL Extremities: Yes: WNL Edema: No Integumentary: Yes: WNL Wound/Incision: Yes: Clean/Dry, Well Approximated, Sutures Intact, Steri Strips, Open to air Neurological: Yes: WNL, Alert, Oriented ...Motor Strength: WNL Psychiatric: Yes: WNL, Alert, Oriented Labs: CBC, BMP 01/18/20 07:56 01/17/20 09:36 Delivery - Delivery Section: Primary, Low Flap Transverse Type of Anesthesia: Spinal EBL (cc): 700 Delivery, Single - Stages of Labor Date 1st Stage Initiatied: 01/17/20 Time 1st Stage Initiated: 06:00 Date of Delivery: 01/17/20 Time of Delivery: 11:37 Time Placenta Delivered: 11:38 Placenta: Yes: Expressed, Manual Removal, Normal Configuration - 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 Present: Yes Name: Usman Wells Gender: Male Weight: 3.005 kg Position: OA Total Hours ROM (Hrs/Mins): 5H10M - 1 Minute Total Score: 9 5 Minutes Total Score: 9 - Feeding Plan Initial Plan: Exclusive throughout hospitalization Benefits of Exclusively reinforced: Yes Discharge Summary Problems reviewed: Yes Reason For Visit: SECTION POstop section Fibroid uterus Prior myomectomy Procedures: Principal: Primary LT C/S Hospital Course: Normal postop and recovery Plan of Treatment: Normal postop and recovery Goals: Normal postop and recovery Condition: Good - Instructions Diet, Activity, Other Instructions: Physical activity Resume your normal everyday activity as tolerated no heavy lifting or exercise until seen by your surgeon. You may walk unlimited kaz of and climb stairs. You may resume driving the car when you feel safe and comfortable behind the wheel. No sexual activity as instructed. Wound care If you have a bandage, leave it on, and keep dry for 48-72 hours. After that time discard the outer bandage. If they are tapes on the skin under the out of bandage leave them in place. They will peel off in the next 7 to 10 days. Do Not Peel them off. You may shower the day after surgery. If there are tapes present on the skin, you may shower over them. Diet There are no dietary restrictions. Eat healthy, high-fiber foods. Drink 6 to 8 glasses of liquid each day. This will assist in keeping your bowels are regular. Pain management You may take Tylenol or acetaminophen or Ibuprofen (for example, Motrin, Advil etc.) from my pain prescription medication is ordered should be taken as prescribed for moderate to severe pain. Call MD for any of the following: Severe pain not relieved by medication Fever of 101 or higher Excessive bleeding or drainage on dressing Inability to urinate Referrals: Vivian Joy MD [Staff Physician] - Disposition: HOME - Home Medications Comprehensive Discharge Medication List: Ambulatory Orders Pnv No.95/Ferrous Fum/Folic AC [ Formula] 1 each PO DAILY 01/07/20 Iron 1 infus.bot IV WEEKLY 01/08/20 Tablet 1 tablet PO DAILY 01/17/20 Prescription Drug Monitoring Program (I-STOP) results: I-STOP not reviewed
[2020-01-20 09:01] LABS: BASO % 0.2 % (0-2.0); EOS % 2.2 % (0-4.5); HEMATOCRIT 33.4 % (32.4-45.2); HEMOGLOBIN 10.4 GM/dL (10.7-15.3); LYMPH % 16.1 % (8-40); MCH 24.6 pg (25.7-33.7); MCHC 31.2 g/dl (32.0-36.0); MEAN PLT VOLUME 8.4 fl (7.5-11.1); MONO % 5.4 % (3.8-10.2); NEUT % 76.1 % (42.8-82.8); PLATELET COUNT 280 K/MM3 (134-434); RBC 4.22 M/mm3 (3.60-5.2); RDW 22.5 % (11.6-15.6); WHITE BLOOD COUNT 9.7 K/mm3 (4.0-10.0)
[2020-01-20] MEDS: ENOXAPARIN NA (PORCINE) 40 MG/0.4 ML DISP.SYRIN SQ SCH (09:44)
[2020-01-20] MEDS: PRENATAL VITAMINS W/ FOLIC ACID TABLET (FP) PO SCH (09:44)
--- NOTE | 2020-01-20 10:27 | PN ---
Progress Note, Physician History of Present Illness: 34yo P1 admitted with at EGA 37w6d due to spontaneous labor, SROM, and spotting. History of Present Illness: Pt presenteed with spontaneous ctx's SROM and spotting. complicated by: late PNC transfer at 28wk AMA Large uterine firboid(s) present Prior h/o Laparoscopic myomectomy Prior h/o PPROM and delivery () at 35wks - Current Medication List Current Medications: Active Medications Acetaminophen (Tylenol -) 650 mg PO Q4H PRN PRN Reason: FEVER Last Admin: 01/20/20 05:56 Dose: 650 mg Documented by: Benzocaine (Americaine 20% [place] -) 1 spray TP PRN PRN PRN Reason: Pain - Topical Benzocaine (Americaine Ointment -) 1 applic TP PRN PRN PRN Reason: Pain - Topical Bisacodyl (Dulcolax Suppository -) 10 mg RC PRN PRN PRN Reason: CONSTIPATION Diphenhydramine HCl (Benadryl Injection -) 25 mg IVPUSH Q4H PRN PRN Reason: Pruritis Last Admin: 01/17/20 22:21 Dose: 25 mg Documented by: Enoxaparin Sodium (Lovenox -) 40 mg SQ DAILY [facility] Last Admin: 01/20/20 09:44 Dose: 40 mg Documented by: Ibuprofen (Motrin -) 600 mg PO Q4H PRN PRN Reason: PAIN LEVEL 1 - 3 Last Admin: 01/20/20 05:56 Dose: 600 mg Documented by: Ibuprofen (Caldolor Injection -) 800 mg IVPB Q8H PRN PRN Reason: PAIN LEVEL 1-5 Last Admin: 01/18/20 06:06 Dose: 800 mg Documented by: Methylergonovine Maleate (Methergine Injection -) 0.2 mg IM Q4H PRN PRN Reason: Excessive Bleeding (L&D) Ondansetron HCl (Zofran Injection) 4 mg IVPUSH Q4H PRN PRN Reason: NAUSEA Multivit/Folic Acid/Iron ( Vitamins (Sjr) -) 1 tab PO DAILY [facility] Last Admin: 01/20/20 09:44 Dose: 1 tab Documented by: Senna/Docusate Sodium (Pericolace -) 2 tablet PO HS PRN PRN Reason: CONSTIPATION Last Admin: 01/19/20 20:04 Dose: 2 tablet Documented by: Simethicone (Mylicon -) 80 mg PO Q4H PRN PRN Reason: GAS Last Admin: 01/20/20 05:57 Dose: 80 mg Documented by: Benjamin Schrader/Glycerin (Tucks Pads -) 1 pad TP PRN PRN PRN Reason: Pain - Topical - Objective Vital Signs: Vital Signs Temperature 98.7 F 01/19/20 22:00 Pulse Rate 82 01/19/20 22:00 Respiratory Rate 18 01/19/20 22:00 Blood Pressure 112/67 01/19/20 22:00 O2 Sat by Pulse Oximetry (%) Eyes: Yes: WNL, Conjunctiva Clear, EOM Intact HENT: Yes: WNL, Atraumatic, Normocephalic Neck: Yes: WNL, Supple, Trachea Midline Cardiovascular: Yes: WNL, Regular Rate and Rhythm Respiratory: Yes: WNL, Regular, CTA Bilaterally Gastrointestinal: Yes: WNL, Normal Bowel Sounds Genitourinary: Yes: WNL Musculoskeletal: Yes: WNL Extremities: Yes: WNL Edema: No Integumentary: Yes: WNL Neurological: Yes: WNL, Alert, Oriented ...Motor Strength: WNL Psychiatric: Yes: WNL Labs: CBC, BMP 01/20/20 08:07 01/17/20 09:36 INR, PTT INR 0.92 (0.83-1.09) 01/17/20 09:36 Problem List - Problems (1) Fibroid uterus Code(s): D25.9 - LEIOMYOMA OF UTERUS, UNSPECIFIED Qualifiers: Uterine leiomyoma location: intramural Qualified Code(s): D25.1 - Intramural leiomyoma of uterus (2) Pharyngitis Code(s): J02.9 - ACUTE PHARYNGITIS, UNSPECIFIED Qualifiers: Pharyngitis/tonsillitis etiology: unspecified etiology Qualified Code(s): J02.9 - Acute pharyngitis, unspecified (3) with 36 completed weeks gestation Code(s): Z3A.36 - 36 WEEKS GESTATION OF (4) Uterine scar from previous surgery affecting Code(s): O34.29 - MATERNAL CARE DUE TO UTERINE SCAR FROM OTH PREVIOUS SURGERY Assessment/Plan 34 y.o POD #1 evaluated for abnormal EKG pre-op as per anesthesia note EKG preop showed inverted T- waves. This EKG is unavailable and not in the chart. Two 12 leads EKG in the [place] system are normal Plan: Vital signs stable; pt has no chest pain, palpitations, dizziness, or syncope. ECHO: essentially normal study, including normal LVEF. Will try to obtain/locate abnormal ekg (01/17/2020 EKG notes sinus bradycardia; isolated T wave inversions in III, V1). Repeat EKG today; f/u TSH and lipid profile.
[2020-01-20 10:35] VITALS: BP 116/66; PULSE 71; TEMP 98.3
--- NOTE | 2020-01-21 16:17 | PATH ---
Surgical Pathology Report Patient Name: MAGDY ANGELES Med. Rec. 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 Specimen(s) Received A: PLACENTA B: PARATUBAL CYST Clinical History , 38.3 weeks, ruptured membranes Final Diagnosis A. PLACENTA: THIRD TRIMESTER PLACENTA. TRIVASCULAR CORD. MEMBRANES WITH NO DIAGNOSTIC ABNORMALITIES. B. PARATUBAL CYST, RESECTION: CONSISTENT WITH PARATUBAL CYST. Electronically Signed Lance Schmidt M.D. Gross Description A. The specimen is received fresh labeled placenta and is a 436 gram, 17.0 x 13.0 x 2.8 cm. placenta with attached membranes and umbilical cord. The attached membranes are benoit, translucent with focal opacities and insert marginally. The umbilical cord measures 21 cm. in length and averages 1.1 cm. in diameter. The cord inserts at the margin. No true knots or strictures are identified. Cut surface of the umbilical cord reveals 3 vessels. The surface is larson-blue with minimal fibrin deposition and appropriate caliber vessels. The maternal surface is red-brown with focal defects. Sectioning reveals red-brown, spongy parenchyma. No lesions are identified. Cruise Agent sections are submitted in three cassettes as follows: 1- membrane rolls and umbilical cord; 2-3- full thickness sections of placenta. B. Received in formalin labeled "paratubal cyst," is a 1.4 x 1.0 x 0.7 cm intact cyst containing benoit serous fluid. The outer surface is vera purple and smooth. The inner lining of the cyst is smooth. No excrescences are identified. The specimen is sectioned and entirely submitted in one cassette. 01/19/2020 [facility]01/19/2020
--- NOTE | 2020-01-22 15:12 | OP ---
DATE OF OPERATION: 01/17/2020 PREOPERATIVE DIAGNOSIS: at estimated gestational age of 37 weeks and 6 days in spontaneous labor, prior history of myomectomy performed laparoscopically. Large uterine fibroids during this , advanced maternal age. POSTOPERATIVE DIAGNOSIS: at estimated gestational age of 37 weeks and 6 days in spontaneous labor, prior history of myomectomy performed laparoscopically. Large uterine fibroids during this , advanced maternal age. PROCEDURE: Primary low transverse section via Pfannenstiel skin incision. SURGEON: Tunde Lorenzo MD HOSPITAL WELLNESS COORDINATOR: Marilee Rueda MD ANESTHESIOLOGIST: Heladio Hernandez MD ANESTHESIA: Spinal. COMPLICATIONS: None. ESTIMATED BLOOD LOSS: 700 mL. INTRAVENOUS FLUIDS: 1100 mL. URINE OUTPUT: 700 mL of clear urine at the end of the procedure. PATHOLOGY: Placenta. COMPLICATIONS: None. FINDINGS: Live baby boy in vertex presentation. No meconium noted in amniotic fluid. There was a nuchal cord wrapped around the baby's neck twice and released without difficulty. Apgars 9 and 9. Baby's weight 6 pounds and 10 ounces. DESCRIPTION OF PROCEDURE: The patient was met preoperatively. Risks, benefits, and alternatives of surgery were discussed in detail. All questions were answered. The consent form was reviewed and discussed. The patient verbalized her understanding. The consent form was signed and the patient requested to proceed with the surgery. The patient was brought to the operating room with the IV running. She was placed on the surgical table in the sitting position. The spinal anesthesia was achieved without difficulty. The patient was placed on the surgical table in a supine position with a leftward tilt. She was prepped and draped in the usual sterile fashion. A Greenfield catheter was inserted and left to drain to gravity. The timeout was conducted as per standard protocol. The surgeons then proceeded with the operation. A Pfannenstiel skin incision was made approximately 2 cm above the pubic symphysis. The incision was taken down to the level of fascia. The fascia was incised in the midline, and the incision was extended bilaterally using Tucker scissors. The fascia was dissected away from the rectus muscles superiorly and inferiorly. The rectus muscles were in the midline. The peritoneum was identified, tented up with 2 Delicia clamps and entered sharply. The peritoneal incision was extended superiorly and inferiorly. The bladder peritoneum was incised over the lower uterine segment. The bladder was then dissected away from the lower uterine segment using sharp dissection. The bladder was reflected downwards using a Esperanza retractor. The lower uterine segment was incised transversely. The incision was extended bilaterally using bandage scissors. The amniotic fluid was noted to be clear. The baby was delivered from vertex presentation and without complications. The baby was crying spontaneously. The umbilical cord was clamped and cut. The baby was then handed to the awaiting vpk teacher. The placenta was extracted manually and without complications. The uterine cavity was cleared of all clots and debris using laparotomy laps. The uterine incision was repaired using a 0 Biosyn suture with a running locking stitch. Good hemostasis was noted. The uterine incision was imbricated using a 0 Biosyn suture. Once again, good hemostasis was noted. The bladder peritoneum was approximating using a 0 Biosyn stitch. The operative site was irrigated using copious amounts of normal saline. Once the saline was aspirated, good hemostasis was confirmed. The parietal peritoneum was closed using a 2-0 chromic suture. The rectus muscles were approximated in the midline using several interrupted 2-0 chromic sutures. The fascia was closed using a 0 Vicryl suture with a running stitch. The subcutaneous adipose tissues and Gisela's fascia were closed to eliminate space using several interrupted 0 Vicryl sutures. The skin was reapproximated using a 4-0 Biosyn suture with a subcutaneous stitch. Sponge, lap, needle counts were correct. The patient was transferred to recovery room in stable condition and awake. Sue [id number]
== END 2020-01-20 14:45 | disposition home or self-care (01) | DRG 540 ==
LOC: JDEL 07:25 → JLDR 09:00 → J3W 14:21
PROVIDERS: ADMIT Obstetrics & Gynecology; ATTEND Obstetrics & Gynecology
PROC: 10D00Z1 Extraction of Products of Conception, Low, Open Approach (ICD-10-PCS; principal; 2020-01-17)
DX: O34.219 Maternal care for unspecified type scar from previous cesarean delivery (principal); O42.92 Full-term premature rupture of membranes, unspecified as to length of time between rupture and onset of labor; Z3A.37 37 weeks gestation of pregnancy; Z37.0 Single live birth; O34.13 Maternal care for benign tumor of corpus uteri, third trimester; D25.1 Intramural leiomyoma of uterus; O69.81X0 Labor and delivery complicated by cord around neck, without compression, not applicable or unspecified; R94.31 Abnormal electrocardiogram [ECG] [EKG]; O99.03 Anemia complicating the puerperium; D64.9 Anemia, unspecified
CPT/HCPCS: 36415; 36600; 80048; 82550; 82803; 84484; 85025; 85610; 85730; 86780; 86850; 86900; 86901; 86922; 88304-TC; 88307-TC; 93005; 93010; 93306-TC; U0003

== ENCOUNTER 2021-06-16 01:45 | Inpatient (IN) | payer BC, OTHER ==
[2021-06-16] MEDS ORDERED: ELECTROLYTE-148 SOLN 1,000 ML IV ONE (02:00)
[2021-06-16] MEDS ORDERED: ACETAMINOPHEN 1000 MG/100 ML VIAL IVPB ONE (02:00)
[2021-06-16] MEDS ORDERED: ACETAMINOPHEN INJECTION 100 ML IVPB ONE ×2 (02:24→09:07)
[2021-06-16] MEDS ORDERED: CITRIC ACID/SODIUM CITRATE 30 ML UNIT-DOSE CUP PO ONE (06:07)
[2021-06-16] MEDS ORDERED: ELECTROLYTE-148 SOLN 1,000 ML IV SCH ×2 (06:15→07:45)
[2021-06-16 06:26] LABS: BASO % 0.3 % (0-2.0); EOS % 1.5 % (0-4.5); HEMATOCRIT 31.2 % (32.4-45.2); HEMOGLOBIN 10.5 GM/dL (10.7-15.3); LYMPH % 24.4 % (8-40); MCHC 33.7 g/dl (32.0-36.0); MEAN CELL VOLUME 77.1 fl (80-96); MEAN PLT VOLUME 8.2 fl (7.5-11.1); MONO % 7.5 % (3.8-10.2); NEUT % 66.3 % (42.8-82.8); PLATELET COUNT 276 10^3/uL (134-434); RBC 4.04 M/mm3 (3.60-5.2); RDW 16.1 % (11.6-15.6); WHITE BLOOD COUNT 7.6 K/mm3 (4.0-10.0)
[2021-06-16 06:38] LABS: INR 0.97 (0.83-1.09); PROTHROMBIN TIME (PATIENT) 11.3 SEC (9.7-13.0)
[2021-06-16 06:41] LABS: ACTIVATED PTT 26.1 SECONDS (25.2-36.5)
[2021-06-16 06:53] VITALS: BMI 27.4
[2021-06-16 06:54] LABS: BLOOD UREA NITROGEN 10.5 mg/dL (7-18); CALCIUM 8.5 mg/dL (8.5-10.1)
[2021-06-16 06:58] LABS: CREATININE 0.5 mg/dL (0.55-1.3)
[2021-06-16] MEDS ORDERED: OXYTOCIN 20 UNITS in 0.9% NS 20 UNIT/1,000 ML INFUS.BAG IV ONE ×2 (07:34→10:59)
[2021-06-16] MEDS ORDERED: LIGASURE IMPACT TP ONE (07:39)
[2021-06-16] MEDS ORDERED: morphine SULFATE (PF) 1 MG/2 ML SYRINGE ONE (07:43)
[2021-06-16] MEDS ORDERED: OXYTOCIN 20 UNITS in 0.9% NS 20 UNIT/1,000 ML INFUS.BAG IV SCH (07:45)
[2021-06-16] MEDS ORDERED: METHYLERGONOVINE MALEATE 0.2 MG/1 ML AMP IM PRN (07:45)
[2021-06-16 07:52] LABS: HIV INTERPRETATION NEGATIVE (NEGATIVE)
[2021-06-16] MEDS ORDERED: ceFAZolin SODIUM 1 GM VIAL ONE (07:55)
[2021-06-16] MEDS ORDERED: ONDANSETRON 4 MG/2 ML VIAL ONE (08:15)
[2021-06-16] MEDS ORDERED: MIDAZOLAM HCL 2 MG/2 ML SINGLE DOSE VIAL ONE (08:26)
[2021-06-16 09:17] LABS: CORD BASE EXCESS -4.8 mmol/L (0-2); CORD HCO3 24.8 mmHg (20-29); CORD PCO2 66.2 mmHg (30-78); CORD pH 7.192 (7.14-7.44)
[2021-06-16 09:20] LABS: CORD BASE EXCESS -5.2 mmol/L (0-2); CORD HCO3 20.8 mmHg (20-29); CORD PCO2 41.8 mmHg (30-78); CORD pH 7.314 (7.14-7.44)
[2021-06-16] MEDS ORDERED: ONDANSETRON 4 MG/2 ML VIAL IVPUSH PRN (10:04)
[2021-06-16] MEDS: ENOXAPARIN NA (PORCINE) 40 MG/0.4 ML DISP.SYRIN SQ SCH (11:05)
[2021-06-16 14:38] LABS: POC NITRAZINE NEG
[2021-06-16] MEDS ORDERED: oxyCODONE HCL 5 MG TABLET PO PRN ×2 (19:45)
[2021-06-16] MEDS: KETOROLAC TROMETHAMINE 30 MG/1 ML VIAL IVPUSH PRN (21:31)
[2021-06-17] MEDS: KETOROLAC TROMETHAMINE 30 MG/1 ML VIAL IVPUSH PRN (05:13)
[2021-06-17] MEDS ORDERED: BISACODYL 10 MG SUPP.RECT RC PRN (07:45)
[2021-06-17 08:13] LABS: BASO % 0.2 % (0-2.0); EOS % 0.8 % (0-4.5); HEMATOCRIT 31.3 % (32.4-45.2); HEMOGLOBIN 10.5 GM/dL (10.7-15.3); LYMPH % 8.9 % (8-40); MCHC 33.6 g/dl (32.0-36.0); MEAN CELL VOLUME 77.5 fl (80-96); MEAN PLT VOLUME 8.5 fl (7.5-11.1); MONO % 4.9 % (3.8-10.2); NEUT % 85.2 % (42.8-82.8); PLATELET COUNT 232 10^3/uL (134-434); RBC 4.04 M/mm3 (3.60-5.2); RDW 16.8 % (11.6-15.6); WHITE BLOOD COUNT 10.7 K/mm3 (4.0-10.0)
[2021-06-17] MEDS: ACETAMINOPHEN 325 MG TABLET (FP) PO PRN ×2 (08:50→17:08)
[2021-06-17] MEDS: SIMETHICONE 80 MG TAB.CHEW (FP) PO PRN ×3 (08:51→21:25)
[2021-06-17] MEDS: ENOXAPARIN NA (PORCINE) 40 MG/0.4 ML DISP.SYRIN SQ SCH ×2 (09:02)
[2021-06-17] MEDS: IBUPROFEN 600 MG TABLET (FP) PO PRN ×2 (14:01→21:24)
[2021-06-18] MEDS: IBUPROFEN 600 MG TABLET (FP) PO PRN ×4 (01:18→23:35)
[2021-06-18] MEDS: SIMETHICONE 80 MG TAB.CHEW (FP) PO PRN ×3 (08:52→23:37)
[2021-06-18] MEDS: ENOXAPARIN NA (PORCINE) 40 MG/0.4 ML DISP.SYRIN SQ SCH (09:40)
[2021-06-18 22:30] VITALS: TEMP 98
[2021-06-19] MEDS: IBUPROFEN 600 MG TABLET (FP) PO PRN ×3 (03:11→14:06)
[2021-06-19 09:04] LABS: BASO % 0.4 % (0-2.0); HEMATOCRIT 28.2 % (32.4-45.2); HEMOGLOBIN 9.6 GM/dL (10.7-15.3); LYMPH % 22.6 % (8-40); MCH 26.1 pg (25.7-33.7); MCHC 34.1 g/dl (32.0-36.0); MEAN CELL VOLUME 76.6 fl (80-96); MEAN PLT VOLUME 8.3 fl (7.5-11.1); MONO % 5.1 % (3.8-10.2); NEUT % 68.9 % (42.8-82.8); PLATELET COUNT 325 10^3/uL (134-434); RBC 3.68 M/mm3 (3.60-5.2); RDW 16.8 % (11.6-15.6); WHITE BLOOD COUNT 8.6 K/mm3 (4.0-10.0)
[2021-06-19] MEDS: ENOXAPARIN NA (PORCINE) 40 MG/0.4 ML DISP.SYRIN SQ SCH (09:19)
[2021-06-19] MEDS: SIMETHICONE 80 MG TAB.CHEW (FP) PO PRN ×2 (09:19→14:06)
[2021-06-19 10:59] VITALS: BP 126/75; PULSE 76
== END 2021-06-19 14:10 | disposition home or self-care (01) | DRG 540 ==
LOC: JDEL 01:45 → JLDR 05:30 → J3W 13:40
PROVIDERS: ADMIT Obstetrics & Gynecology; ATTEND Obstetrics & Gynecology
PROC: 10D00Z1 Extraction of Products of Conception, Low, Open Approach (ICD-10-PCS; principal; 2021-06-17)
PROC: 0UB70ZZ Excision of Bilateral Fallopian Tubes, Open Approach (ICD-10-PCS; 2021-06-17)
DX: O34.211 Maternal care for low transverse scar from previous cesarean delivery (principal); N85.8 Other specified noninflammatory disorders of uterus; O34.13 Maternal care for benign tumor of corpus uteri, third trimester; D25.9 Leiomyoma of uterus, unspecified; O99.214 Obesity complicating childbirth; O24.424 Gestational diabetes mellitus in childbirth, insulin controlled; Z3A.38 38 weeks gestation of pregnancy; Z30.2 Encounter for sterilization; Z37.0 Single live birth
CPT/HCPCS: 36415; 36600; 59025; 80048; 82803; 83986-QW; 85025; 85610; 85730; 86762; 86780; 86850; 86900; 86901; 86922; 87340; 87389; 88302-TC; 88307-TC; C9803; J0131; U0003; U0005

== ENCOUNTER 2021-12-26 04:21 | Day surgery (SDC) | payer OTHER ==
[2021-11-08 11:09] VITALS: BMI 25.8
[2021-12-26] MEDS ORDERED: IBUPROFEN 600 MG TABLET (FP) PO PRN (10:44)
[2021-12-26] MEDS ORDERED: ONDANSETRON 4 MG/2 ML VIAL IVPUSH PRN ×2 (10:44→12:16)
[2021-12-26] MEDS ORDERED: IBUPROFEN 800 MG/8 ML IJ IVPB PRN (10:44)
[2021-12-26] MEDS ORDERED: ELECTROLYTE-148 SOLN 1,000 ML IV SCH (10:45)
[2021-12-26] MEDS ORDERED: oxyCODONE HCL 5 MG TABLET PO PRN (10:59)
[2021-12-26] MEDS ORDERED: MIDAZOLAM HCL 2 MG/2 ML SINGLE DOSE VIAL ONE (11:15)
[2021-12-26] MEDS ORDERED: PROPOFOL 20 ML ONE ×2 (11:15)
[2021-12-26] MEDS ORDERED: KETOROLAC TROMETHAMINE 30 MG/1 ML VIAL ONE (11:19)
[2021-12-26] MEDS ORDERED: DEXAMETHASONE SOD PHOSPHATE 4 MG/1 ML VIAL ONE (11:19)
[2021-12-26] MEDS ORDERED: ONDANSETRON 4 MG/2 ML VIAL ONE (11:19)
[2021-12-26] MEDS ORDERED: GLYCOPYRROLATE 0.2 MG/1 ML VIAL ONE (11:19)
[2021-12-26] MEDS ORDERED: DESFLURANE GAS 240 ML BOTTLE IH ONE (11:41)
[2021-12-26] MEDS ORDERED: SILVER NITRATE 75% APPLIC STCK 1 PKT EACH TP ONE (11:54)
[2021-12-26] MEDS ORDERED: ACETAMINOPHEN 500 MG TABLET (FP) PO PRN (12:17)
[2021-12-26] MEDS ORDERED: LACTATED RINGERS SOLUTION 1,000 ML IV SCH (12:30)
[2021-12-26 14:10] VITALS: TEMP 97.2
[2021-12-26 15:18] VITALS: BP 124/60; PULSE 79
== END 2021-12-26 17:12 | disposition home or self-care (01) ==
LOC: JASU-SURG 04:21
PROVIDERS: ATTEND Obstetrics & Gynecology
PROC: 0UB98ZX Excision of Uterus, Via Natural or Artificial Opening Endoscopic, Diagnostic (ICD-10-PCS; 2021-12-26)
PROC: 0UDB7ZZ Extraction of Endometrium, Via Natural or Artificial Opening (ICD-10-PCS; 2021-12-26)
PROC: 0UB98ZZ Excision of Uterus, Via Natural or Artificial Opening Endoscopic (ICD-10-PCS; principal; 2021-12-26 11:30)
DX: D25.0 Submucous leiomyoma of uterus (principal); N93.9 Abnormal uterine and vaginal bleeding, unspecified; N84.0 Polyp of corpus uteri
CPT/HCPCS: 81025; 88305-TC; 94760